=== PATIENT | male | born 1995 | race Hispanic/Latino ===

== ENCOUNTER 2024-05-16 11:42 | Emergency (ER) | payer OTHER ==
[~2024-05-16] VITALS: Ht 180.3 cm; Wt 97.8 kg
[2024-05-16] MEDS ORDERED: IBUP200C27 PO (11:55)
[2024-05-16] MEDS ORDERED: METH-1165 PO (13:41)
[2024-05-16] MEDS ORDERED: IBUP-1022 PO (13:41)
[2024-05-16 13:54] VITALS: BP 139/65; TEMP 98.3; O2SAT 98
== END 2024-05-16 13:55 | disposition home or self-care (01) ==
LOC: M ED 11:42
DX: S16.1XXA Strain of muscle, fascia and tendon at neck level, initial encounter (principal); V49.40XA Driver injured in collision with unspecified motor vehicles in traffic accident, initial encounter; Y92.410 Unspecified street and highway as the place of occurrence of the external cause; Y93.89 Activity, other specified; Y99.9 Unspecified external cause status; Z79.1 Long term (current) use of non-steroidal anti-inflammatories (NSAID); Z79.899 Other long term (current) drug therapy

== ENCOUNTER 2025-06-23 08:27 | Emergency (ER) | payer OTHER ==
[~2025-06-23] VITALS: Ht 180.3 cm; Wt 92.4 kg
[~2025-06-23 08:27] MED LIST: IBUP200C27 PO; IBUP600T42 PO; METH-1165 PO
[2025-06-23] MEDS ORDERED: IBUP80TA (08:34)
[2025-06-23] MEDS: LIDOCAINE 5% PATCH TD ONE (10:34)
[2025-06-23] MEDS: KETOROLAC 60 MG/2 ML VIAL IM ONE (10:35)
[2025-06-23] MEDS ORDERED: LIDO1PAD TOP (11:30)
[2025-06-23] MEDS ORDERED: METH-1165 PO (11:30)
[2025-06-23 11:33] VITALS: BP 126/74; TEMP 98.1; O2SAT 100
== END 2025-06-23 11:36 | disposition home or self-care (01) ==
LOC: M ED 08:27
DX: M54.50 Low back pain, unspecified (principal); Z79.1 Long term (current) use of non-steroidal anti-inflammatories (NSAID); Z79.899 Other long term (current) drug therapy
CPT/HCPCS: 72110; 96372; 99283; J1885